=== PATIENT | male | born 1975 | race Caucasian/White ===

== ENCOUNTER 2024-03-09 18:30 | Emergency (ER) | payer OTHER, MEDICAID ==
[~2024-03-09] VITALS: Ht 175.3 cm; Wt 91.0 kg
[2024-03-09 18:54] VITALS: BP 122/83; PULSE 67; RESP 18; TEMP 98.1; O2SAT 97
[2024-03-09 19:40] LABS: CLARITY URINE CLEAR (CLEAR); COLOR URINE YELLOW (YELLOW); GLUCOSE URINE NEGATIVE (NEGATIVE); KETONES URINE NEGATIVE (NEGATIVE); LEUKOCYTE ESTERASE URINE NEGATIVE (NEGATIVE); NITRITE URINE NEGATIVE (NEGATIVE); OCCULT BLOOD URINE TRACE (NEGATIVE); PH URINE 7.5 (4.5-8.0); PROTEIN URINE NEGATIVE (NEGATIVE)
[2024-03-09 19:59] LABS: BACTERIA URINE NONE SEEN; SQUAMOUS EPITHELIAL CELL URINE RARE /lpf (RARE/1+); WBC URINE NONE SEEN /hpf (0-2)
[2024-03-09 20:08] LABS: BASOPHILS % 0.6 % (0.0-2.0); EOSINOPHILS % 3.2 % (0.0-5.0); HEMATOCRIT. 45.9 % (42.0-52.0); LYMPHOCYTES % 27.3 % (20.0-50.0); MEAN CORPUSCULAR HEMOGLOBIN 31.9 pg (28.0-32.0); MEAN CORPUSCULAR HGB CONC 34.8 g/dL (31.0-37.0); MEAN CORPUSCULAR VOLUME 91.6 fL (80.0-94.0); MEAN PLATELET VOLUME 7.8 fl (7.4-10.4); MONOCYTES % 4.8 % (2.0-8.0); NEUTROPHILS % 64.1 % (40.0-76.0); PLATELET 284 x1000/uL (130-400); RED BLOOD CELL COUNT 5.02 mill/uL (4.7-6.1); WHITE BLOOD COUNT 7.3 x1000/uL (4.5-11.0)
[2024-03-09 20:17] LABS: CHLORIDE 106 mEq/L (98-107); POTASSIUM 4.3 mEq/L (3.5-5.1); SODIUM 140 mEq/L (136-145)
[2024-03-09 20:18] LABS: CARBON DIOXIDE 27 mEq/L (21-32)
[2024-03-09 20:19] LABS: CALCIUM 9.4 mg/dL (8.7-10.4)
[2024-03-09 20:23] LABS: GLUCOSE 103 mg/dL (70-105)
[2024-03-09 20:24] LABS: UREA NITROGEN BLOOD 14 mg/dL (9-23)
[2024-03-09 20:25] LABS: ALANINE AMINOTRANSFERASE 61 IU/L (10-49); ALBUMIN 4.3 g/dL (3.2-4.8); ASPARTATE AMINOTRANSFERASE 27 IU/L (<34)
[2024-03-09 20:26] LABS: BILIRUBIN TOTAL 0.4 mg/dL (0.1-1.0)
[2024-03-09 20:27] LABS: BILIRUBIN DIRECT < 0.1 mg/dL (<=3.0)
== END 2024-03-10 01:50 | disposition left against medical advice (07) ==
LOC: ER 18:30
DX: K40.90 Unilateral inguinal hernia, without obstruction or gangrene, not specified as recurrent (principal)
CPT/HCPCS: 36415; 76870; 80048; 80076; 81003; 85025; 93976; 99284